=== PATIENT | female | born 1930 | race Caucasian/White ===

== ENCOUNTER 2018-02-19 11:29 | Emergency (ER) | payer MEDICARE, OTHER ==
[2018-02-19] MEDS ORDERED: ETOMIDATE 20 MG/10 ML IV ONE (11:30)
[2018-02-19] MEDS ORDERED: ROCURONIUM BROMIDE 10 MG/ML 5ML VIAL IVP ONE (11:35)
[2018-02-19 11:54] LABS: BASOPHILS % 0.3 (0.0-1.5); MEAN CORPUSCULAR HEMOGLOBIN 27.3 pg (28.0-34.0); MEAN CORPUSCULAR VOLUME 93.8 fl (80.0-100.0); MONOCYTES % 4.7 % (0.0-11.0); NEUTROPHILS # 8.8 # k/uL (1.4-7.7)
[2018-02-19 12:04] LABS: eGFR (African) 8; eGFR (Non-African) 6
[2018-02-19] MEDS ORDERED: VANCOMYCIN HCL 1 GM in 0.9 % SODIUM CHLORIDE 500 ML IV ONE (12:36)
[2018-02-19] MEDS ORDERED: MEROPENEM 1,000 MG in 0.9 % SODIUM CHLORIDE 50 ML IV ONE (12:38)
[2018-02-19] MEDS ORDERED: VANCOMYCIN HCL 1 GM VIAL IV ONE (12:38)
[2018-02-19] MEDS ORDERED: 0.9 % SODIUM CHLORIDE 250 ML IV ONE (12:39)
--- NOTE | 2018-02-19 12:43 | ED Physician Documentation ---
General Adult - HISTORIAN Historian: paramedics - [facility] Chief Complaint: General Adult Further Comments: yes (87 year old female patient recieved from [facility] in Respirtory arrest; bagging with 100% BVM. Patient connected to monitors and prepared for intubation.) - ROS CONST: other ( reports patient was more lethargic this morning; did not give morning medications, did not eat. Stopped breathing, so he called 911) EYES/ENT: none (per ) CVS/RESP: none (per ) GI/: none (per ), other (patient does not void per family) MS/SKIN/LYMPH: leg pain (left thigh) - PAST HX Past History: hypertension, other (Peritoneal dialysis; ESRD,) Other History: diabetes Type 2, other (PAD, HLD, allergc rhinitis) Surgeries/Procedures: other (Left BKA; right foot partial amputation. ) Allergies/Adverse Reactions: Allergies Allergy/AdvReac Type Severity Reaction Status Date / Time No Known Allergies Allergy Verified 02/19/18 14:04 Home Medications: Ambulatory Orders Medication Instructions Recorded Alphagan P 0.1 ml OP BID 10/23/12 Aspir 81 81 mg PO DAILY 10/23/12 Timolol [Betimol] 5 00 OP DAILY 10/23/12 - SOCIAL HX Smoking History: non-smoker - FAMILY HX Family History: No - VITAL SIGNS Vital Signs: Vital Signs Temp Pulse Resp BP Pulse Ox 160/49 08/25/13 15:30 - REVIEWED ASSESSMENTS Nursing Assessment Reviewed: Yes Vitals Reviewed: Yes Procedures Time of Intubation: 11:35 Intubation Method: orotracheal Tube Size (cm): 7.5 Breath Sounds after Intubation: equal Intubation Complications: no complications Post Intubation Xray: Yes Progress/Xray Impression: tip 1.5 cm above the elvis. Progress - Progress Progress: Per EMS - patient is a full code. Refused DNR per . RSI with etomidate 20mg and Rocuronium 70mg. Intubated with 7.5 ETT, 24 at lip , Co2 detector with good color change, BBS auscultated, ETT secured. Updated family on patient's condition. Explained intubation. Explained patient would need to be admitted to ICU. Family prefers [facility]. Call to [facility]. Patient accepted by Dr You. Orders for Vancomycin 1 G and Meropenum 1G. ABG reviewed, lab and chest xray reviewed. Last peritoneal dialysis -last night over 10 hours. Will transfer via [facility]. Family would now like to make patient DNR - no CPR, no emergency medications. Explained family's wishes to [facility] RN. ED Results Lab/Radiology - Lab Results Lab Results: Lab Results 02/19/18 02/19/18 02/19/18 11:45 11:45 11:45 WBC RBC Hgb Hct MCV MCH MCHC RDW Plt Count Neut % (Auto) Lymph % (Auto) [place] % (Auto) Eos % (Auto) Baso % (Auto) Neut # (Auto) Lymph # (Auto) [place] # (Auto) Eos # (Auto) Baso # (Auto) Reactive Lymphs % Reactive Lymphs # Sodium 136 mmol/L mmol/L (136-145) Potassium 2.9 mmol/L L mmol/L (3.5-5.1) Chloride 96 mmol/L L mmol/L (98-107) Carbon Dioxide 26 mmol/L mmol/L (22-30) BUN 24 mg/dL H mg/dL (7-17) Creatinine 6.60 mg/dL H mg/dL (0.52-1.04) Est GFR ( Amer) 8 L (60 - ) Est GFR (Non-Af Amer) 6 L (60 - ) Glucose 199 mg/dL H mg/dL (74-106) Lactate 5.5 U/L H U/L (0.7-2.1) Calcium 8.0 mg/dL L mg/dL (8.4-10.2) Total Bilirubin 0.1 mg/dL L mg/dL (0.2-1.3) AST 28 U/L U/L (15-46) ALT 24 U/L U/L (13-69) Alkaline Phosphatase 165 U/L H U/L (38-126) Creatine Kinase 38 U/L U/L (30-135) Troponin I 0.03 ng/mL ng/mL (0.03-0.06) Total Protein 5.7 g/dL L g/dL (6.3-8.2) Albumin 2.4 g/dL L g/dL (3.5-5.0) 02/19/18 11:45 WBC 12.60 K/ul H K/ul (4.00-12.00) RBC 3.75 M/ul L M/ul (3.90-5.20) Hgb 10.2 g/dL L g/dL (12.0-16.0) Hct 35.2 % % (34.5-46.5) MCV 93.8 fl fl (80.0-100.0) MCH 27.3 pg L pg (28.0-34.0) MCHC 29.1 g/dL L g/dL (30.0-36.0) RDW 15.0 % H % (11.3-14.3) Plt Count 344 K/mm3 K/mm3 (130-400) Neut % (Auto) 69.9 % % (39.0-79.0) Lymph % (Auto) 21.6 % % (16.0-50.0) [place] % (Auto) 4.7 % % (0.0-11.0) Eos % (Auto) 2.0 % % (0.0-6.8) Baso % (Auto) 0.3 (0.0-1.5) Neut # (Auto) 8.8 # k/uL H # k/uL (1.4-7.7) Lymph # (Auto) 2.7 # k/uL # k/uL (0.6-4.0) [place] # (Auto) 0.6 # k/uL # k/uL (0.0-0.9) Eos # (Auto) 0.2 # k/uL # k/uL (0.0-0.6) Baso # (Auto) 0.0 # k/uL # k/uL (0.0-0.5) Reactive Lymphs % 1.5 % % (0.0-5.0) Reactive Lymphs # 0.2 # k/uL # k/uL (0.0-0.8) Sodium Potassium Chloride Carbon Dioxide BUN Creatinine Est GFR ( Amer) Est GFR (Non-Af Amer) Glucose Lactate Calcium Total Bilirubin AST ALT Alkaline Phosphatase Creatine Kinase Troponin I Total Protein Albumin - Radiology Radiology Impressions: Examination: Portable chest History: PCXR, SUPINE, ETT PLACEMENT, UNRESPONSIVE PT (Hx) Comparison exam: None provided. Findings: Single view of the chest demonstrates an underpenetrated examination. Cardiac silhouette not enlarged. Vascular calcifications involving aortic arch. Limited evaluation of the lung lawler without gross consolidation blunting of the costophrenic margins. Nasogastric tube: tip within the stomach. Endotracheal tube: tip 1.5 cm above the elvis. Articular degenerative changes. Impression: No acute appearing pulmonary process though sensitivity reduced due to exam technique. Endotracheal tube: tip 1.5 cm above the elvis. Electronically signed on February 19, 2018 12:28:21 PM CDT by: Daniele James - Orders Orders: ED Orders Category Date Time Status Urinary catheterization 1T Care 02/19/18 12:36 Active CHEST 1VIEW [RAD] Stat Exams 02/19/18 12:00 Taken BLOOD CULTURE Stat Lab 02/19/18 Ordered CBC AUTO DIFF Routine Lab 02/19/18 11:45 Completed CMP Routine Lab 02/19/18 11:45 Completed CREATINE KINASE Routine Lab 02/19/18 11:45 Completed LACTATE Stat Lab 02/19/18 11:45 Completed TROPONIN I (cTnI) Routine Lab 02/19/18 11:45 Completed UA W/MICRO IF INDICATED Stat Lab 02/19/18 12:37 Ordered Meropenem 1,000 mg Med 02/19/18 12:38 Ordered 0.9 % Sodium Chloride [Sodium Chloride] 50 ml IV NOW Vancomycin HCl [Vancocin] Med 02/19/18 12:38 Discontinued 1 gm IV .STK-MED ONE Vancomycin HCl [Vancocin] 1 gm Med 02/19/18 12:36 Active 0.9 % Sodium Chloride [Normal Saline] 500 ml IV NOW General Adult Physical Exam - PHYSICAL EXAM GENERAL APPEARANCE: obtunded EENT: eye inspection normal, other (pupils irregular; reactive) RESPIRATORY: other (BBS course; minimal respiratory effort) CVS: reg rate & rhythm, heart sounds normal, equal pulses, no murmur, no gallop , PMI nml, no JVD, no friction rub, 24 ABDOMEN: soft, no organomegaly, abnormal bowel sounds, decreased BS BACK: normal inspection SKIN: warm/dry, pallor EXTREMITIES: other (L BKA - dressing dry and intact; right foot with dressing - dry and intact) NEURO: other (obtunded; does not respond to painful stimuli. GCS 3) Discharge Clincal Impression: Respiratory arrest, End stage renal disease, Hypokalemia, Peritoneal dialysis catheter in place Referrals: Pina Penaloza MD [Primary Care Provider] - 2 Days Condition: Critical Disposition: 02 XFER [id number] HOSP Decision to Admit: NO Decision Time: 12:49
[2018-02-19] MEDS ORDERED: 0.9 % SODIUM CHLORIDE 1,000 ML IV ONE (15:31)
[2018-02-19 16:18] VITALS: BP 138/57
--- NOTE | 2018-02-20 06:13 | Diagnostic Imaging Report ---
ASCENCION RODRIGUEZ ([employer]) - ER [facility] [address] [facility] [address] [place], [place]. [address] Report Submission Date: February 19, 2018 12:28:21 PM CDT Patient Study Name: JEANNETTE LARRY Date: February 19, 2018 12:01:48 PM CDT Modality Type: DX Gender: F Description: CHEST : 34 Institution: [facility] Physician: ASCENCION RODRIGUEZ ([employer]) - ER Examination: Portable chest History: PCXR, SUPINE, ETT PLACEMENT, UNRESPONSIVE PT (Hx) Comparison exam: None provided. Findings: Single view of the chest demonstrates an underpenetrated examination. Cardiac silhouette not enlarged. Vascular calcifications involving aortic arch. Limited evaluation of the lung lawler without gross consolidation blunting of the costophrenic margins. Nasogastric tube: tip within the stomach. Endotracheal tube: tip 1.5 cm above the elvis. Articular degenerative changes. Impression: No acute appearing pulmonary process though sensitivity reduced due to exam technique. Endotracheal tube: tip 1.5 cm above the elvis. Electronically signed on February 19, 2018 12:28:21 PM CDT by: Daniele SUGGS
[2018-02-20 07:30] LABS: APPEARANCE,URINE TURBID (CLEAR); COLOR,URINE BROWN (YELLOW); OCCULT BLOOD,URINE 2+ (NEGATIVE); UROBILINOGEN URINE 0.2 Eu (0.2-1.0)
[2018-02-20 08:45] LABS: ABG PH 7.47 (7.35-7.45)
[2018-02-20 08:46] LABS: ABG BASE EXCESS 0.9 (-2 - +2)
== END 2018-02-19 13:23 | disposition short-term general hospital (02) ==
LOC: ED 11:29
DX: R09.2 Respiratory arrest (principal); N18.9 Chronic kidney disease, unspecified; E87.6 Hypokalemia; Z99.2 Dependence on renal dialysis
CPT/HCPCS: 36600; 51702; 71045; 80053; 81002; 82550; 82803; 83605; 84484; 85025; 87040; 87086; J3370; J3490; J7050; 96365; 99291; S1016